=== PATIENT | female | born 1980 | race Hispanic/Latino ===

== ENCOUNTER 2016-09-28 14:54 | Emergency (ER) | payer SELFPAY ==
[2016-09-28 15:31] VITALS: O2SAT 100
[2016-09-28] MEDS ORDERED: Oxycodone/Acetaminophen 5/325 mg Tab PO STA (16:20)
[2016-09-28] MEDS ORDERED: Oxycodone/Acetaminophen 5/325 mg Tab ONE (16:21)
[2016-09-28] MEDS ORDERED: Silver Sulfadiazine 1% Cream (20 gm) TOP STA (16:32)
[2016-09-28] MEDS ORDERED: Silver Sulfadiazine 1% Cream (20 gm) ONE (16:38)
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
[2016-09-28 17:14] VITALS: BP 134/93; PULSE 92; RESP 20; TEMP 98
== END 2016-09-28 17:13 | disposition home or self-care (01) ==
LOC: C.ER 14:54
DX: T24.212A Burn of second degree of left thigh, initial encounter (principal); X10.0XXA Contact with hot drinks, initial encounter; Y92.511 Restaurant or cafe as the place of occurrence of the external cause